=== PATIENT | male | born 1985 | race Two or more races ===

== ENCOUNTER 2024-01-05 18:12 | Emergency (ER) | payer OTHER ==
[~2024-01-05] VITALS: Ht 172.7 cm; Wt 74.8 kg
[~2024-01-05 18:12] MED LIST: FLONASE16 GM NS; GILTUSS TR TAB1 EACH PO; KETOCONAZOLE15 GM TP; LEVSIN/SL0.125 MG PO; LIBRAX; LORATADINE10 MG PO; ZITHROMAX500 MG PO; ZOVIRAX400 MG PO; ZYRTEC10 MG PO
[2024-01-05] MEDS ORDERED: OMEPRAZOLE-BIC1 EAC1 PO (19:01)
[2024-01-05] MEDS ORDERED: CRESTOR40 MG PO (19:01)
[2024-01-05] MEDS ORDERED: LOSARTAN-HCTZ1 EAC1 PO (19:01)
[2024-01-05] MEDS ORDERED: KAPSPARGO SPRI100 MG PO (19:01)
[2024-01-05] MEDS ORDERED: FENOFIBRATE150 MG PO (19:01)
[2024-01-05] MEDS ORDERED: HYOSCYAMINE SULFATE 0.125 MG TAB.SUBL SL ONE (20:00)
[2024-01-05] MEDS ORDERED: ONDANSETRON HCL 2 MG/ML VIAL IV ONE (20:00)
[2024-01-05] MEDS ORDERED: FAMOTIDINE/PF 20 MG/2 ML VIAL IV PUSH ONE (20:00)
[2024-01-05 20:20] LABS: HEMATOCRIT 48.9 % (39.0-48.0); MEAN CORPUSCULAR HEMOGLOBIN 29.5 pg (27.00-32.0); MEAN CORPUSCULAR HGB CONC 34.7 g/dl (32.0-36.0); PLATELET COUNT 237 K/uL (150-450); RED BLOOD COUNT 5.75 M/uL (4.00-6.00); RED CELL DISTRIBUTION WIDTH 14.1 % (11.5-14.5)
[2024-01-05 20:25] LABS: PH,URINE 5.5 (5.0-8.0); URINE APPEARANCE Clear; URINE BILIRRUBIN Negative (NEGATIVE); URINE BLOOD Negative; URINE COLOR Dark Yellow; URINE GLUCOSE Negative (NEGATIVE); URINE KETONE Trace (NEGATIVE); URINE LEUKOCYTE Negative; URINE NITRATE Negative; URINE PROTEIN Trace (NEGATIVE)
[2024-01-05 20:28] LABS: URINE BACTERIA 6.2 uL (0.0-1933); URINE EPITHELIAL CELLS 4.7 uL (0.0-38.8); URINE RBC 2.1 uL (0.0-20.8); URINE WBC 5.5 uL (0.0-23.2)
[2024-01-05 20:47] LABS: URINE CAST 0.45 uL (0.0-1.40)
[2024-01-05 20:56] LABS: ALBUMIN 4.6 gm/dL (3.4-5.0); BILIRUBIN TOTAL 0.62 mg/dL (0.3-1.2); CALCIUM 10.3 mg/dL (8.5-10.1); CREATININE SERUM 1.07 mg/dL (0.70-1.30); GFR 77.76; GLOBULINA 3.5 G/DL (2.4-3.5); POTASSIUM 4.8 mEq/L (3.5-5.1); TOTAL PROTEIN 8.1 gm/dL (6.4-8.2)
== END 2024-01-05 22:10 | disposition home or self-care (01) ==
LOC: ER 18:13
PROVIDERS: General Practice
DX: K52.9 Noninfective gastroenteritis and colitis, unspecified (principal); R10.9 Unspecified abdominal pain; Z20.822 Contact with and (suspected) exposure to COVID-19; Z88.1 Allergy status to other antibiotic agents